=== PATIENT | female | born 1980 | race American Indian/Alaskan Native ===

== ENCOUNTER 2022-12-12 04:28 | Day surgery (SDC) | payer OTHER ==
[2022-12-08 12:32] VITALS: BMI 28.3
[2022-12-12] MEDS ORDERED: SUCCINYLCHOLINE CHLORIDE 200 MG/10 ML SYRINGE ONE (16:01)
[2022-12-12] MEDS ORDERED: PROPOFOL 40 ML ONE (16:01)
[2022-12-12] MEDS ORDERED: ceFAZolin SODIUM 1 GM VIAL IVPB ONE (16:21)
[2022-12-12] MEDS ORDERED: LIDOCAINE HCL 2% JELLY 11 ML TP ONE (16:22)
[2022-12-12 17:00] VITALS: TEMP 98
[2022-12-12 18:00] VITALS: BP 116/64; PULSE 64; RESP 20
== END 2022-12-12 17:30 | disposition home or self-care (01) ==
LOC: JASU-SURG 04:28
PROVIDERS: ATTEND Urology
PROC: 0T7D8ZZ Dilation of Urethra, Via Natural or Artificial Opening Endoscopic (ICD-10-PCS; principal; 2022-12-12 15:30)
DX: N35.92 Unspecified urethral stricture, female (principal); N30.80 Other cystitis without hematuria
CPT/HCPCS: 81025

== ENCOUNTER 2024-11-03 12:34 | Emergency (ER) | payer OTHER ==
[2024-11-03 12:43] VITALS: BP 113/69; PULSE 60; RESP 18; TEMP 98.3; BMI 27.3
[2024-11-03] MEDS ORDERED: DEXAMETHASONE SOD PHOSPHATE 10 MG/1 ML VIAL ONE (13:30)
[2024-11-03] MEDS ORDERED: FAMOTIDINE 20 MG TABLET ONE (13:30)
[2024-11-03] MEDS: FAMOTIDINE 20 MG TABLET PO ONE (13:36)
[2024-11-03] MEDS: DEXAMETHASONE SOD PHOSPHATE 10 MG/1 ML VIAL IM ONE (13:36)
== END 2024-11-03 13:37 | disposition home or self-care (01) ==
LOC: JER 12:34
PROC: 3E023GC Introduction of Other Therapeutic Substance into Muscle, Percutaneous Approach (ICD-10-PCS; principal; 2024-11-03)
DX: R22.0 Localized swelling, mass and lump, head (principal); T78.40XA Allergy, unspecified, initial encounter; L29.9 Pruritus, unspecified
CPT/HCPCS: 99284-25; J1100